=== PATIENT | male | born 1995 | race Caucasian/White ===

== ENCOUNTER 2022-05-18 20:46 | Emergency (ER) | payer OTHER, SELFPAY ==
[2022-05-18 21:14] VITALS: BP 119/75; PULSE 62; RESP 17; TEMP 36.4; O2SAT 99; BMI 20.7
--- NOTE | 2022-05-18 21:40 | ED_ITS ---
HPI - Wound/Laceration General: Chief Complaint: Wound/Laceration Stated Complaint: R hand lac Time Seen by Provider: 05/18/22 21:40 History of Present Illness: 26-year-old male patient comes in today with injury to the right hand. Patient reports that he was pulling out a windshield of a car and a piece of metal came up and cut him at the base of his right index finger. Patient cannot recall his last tetanus shot. Patient was concerned he may need stitches. Patient denies any chronic medical problems. Review of Systems General: Reports: 10 or more systems reviewed and unremarkable except in HPI and below Resp: Denies: dyspnea GI: Denies: abdominal pain Skin/Breast: Reports: new lesions Physical Exam Const: COMMON NORMALS: alert HENMT: COMMON NORMALS: atraumatic HEAD & SCALP: atraumatic Neck/C-Spine: COMMON NORMALS: full ROM Lymph: LYMPHATIC: no lymphadenopathy noted Resp: COMMON NORMALS: normal respiratory effort Cardio: COMMON NORMALS: regular rate RATE: regular rate Extremity: RIGHT UPPER EXTREMITY: Yes hand & digits (3 cm laceration noted to the palmar right hand) Right hand and digits: Yes inspection, Yes palpation, Yes ROM exam (Normal range of motion) and Yes neurovascular exam (States numbness to index finger) Neuro: SENSORIUM/ORIENTATION: Yes alert Skin: TRAUMA: laceration (Right palmar hand) linear Procedures Laceration Laceration 1: Site: hand Side (If applicable): right Size (cm): 3 Depth: simple, single layer Local Anesthetic: lidocaine 1% and with epi Amount of anesthesia used (mL): 3 Pre-repair: wound explored, irrigated extensively and deep structures intact Skin layer closed with: nylon Size (cm): 3-0 Number of sutures: 4 Technique: simple, interrupted (1) and horizontal mattress (3) Course Vital Signs: Vital signs: Vital Signs Temperature 97.5 F L 05/18/22 21:14 Pulse Rate 62 05/18/22 21:14 Respiratory Rate 17 05/18/22 21:14 Blood Pressure 119/75 05/18/22 21:14 Pulse Oximetry 99 05/18/22 21:14 MDM - Wound/Laceration Medical Decision Making 26-year-old male comes in with injury to the right hand. On exam at the base of the index finger patient has a horizontal 3 cm laceration. No foreign body or fractures are noted in the wound. Patient does report some numbness distally to the laceration site. Normal range of motion and tendon function is noted. Differential diagnosis includes fracture, foreign body, neurovascular injury, laceration. Updated patient's tetanus shot. Patient was started on cephalexin 1 tablet twice a day for 10 days. Encourage fluids and rest. Wound was closed with sutures. No visible injury was noted to deep structures patient did report some numbness which may indicate some nerve injury although this was not seen. Post procedure care instructions were given to patient with recommendations for follow-up or return to the ER. Discharge Plan Discharge Patient Disposition: Home Clinical Impression: Laceration of hand, right Qualifiers: Encounter type: initial encounter Foreign body presence: without foreign body Qualified Code(s): S61.411A - Laceration without foreign body of right hand, initial encounter Condition: Stable Prescriptions: New cephalexin 500 mg capsule 500 mg PO BID 10 Days Qty: 20 0RF Discharge Orders: Discharge ED (Routine); Ordered 05/18/22 Ordered By: Lennox Camargo Discharge Diet: Usual diet Discharge Activity: Increase activity as tolerated Patient Instructions: Laceration (ED) Activity Restrictions/Additional Instructions: Keep wound clean and dry. Is very important for the first 2 days the wound stay clean and dry as much as possible. After that you can keep the wound covered while working, try to keep it as dry as possible, and follow-up with primary care in 10 days for suture removal. Monitor site for signs of infection such as redness, swelling, increased pain, and purulent drainage. Return to emergency department for new concerns. Coding Level of Care Code ED [employer] Consult[employer] for [employer] [employer]uro
[2022-05-18] MEDS: cephALEXin 500 mg Capsule PO (21:56)
[2022-05-18] MEDS: tetanus-dipt-pertussis 0.5 mL SDV IM (22:23)
== END 2022-05-18 22:26 | disposition home or self-care (01) ==
PROVIDERS: Emergency Provider Nurse Practitioner Family
DX: S61.411A Laceration without foreign body of right hand, initial encounter (principal); W26.8XXA Contact with other sharp object(s), not elsewhere classified, initial encounter; Z23 Encounter for immunization
CPT/HCPCS: 12002; 90471; 90715; 99283